=== PATIENT | male | born 1950 | race Caucasian/White ===

== ENCOUNTER 2022-08-20 14:46 | Inpatient (IN) | payer MEDICARE, OTHER ==
[~2022-08-20] VITALS: Ht 170.2 cm; Wt 97.1 kg
[2022-08-20] MEDS ORDERED: ASPI-1420 PO (15:03)
[2022-08-20] MEDS ORDERED: TAMS-12 PO (15:03)
[2022-08-20] MEDS ORDERED: ALLA266C2 TP (15:03)
[2022-08-20] MEDS ORDERED: ACET-868 PO (15:03)
[2022-08-20] MEDS ORDERED: BISA10SU11 RC (15:03)
[2022-08-20] MEDS ORDERED: METF-440 PO (15:03)
[2022-08-20] MEDS ORDERED: PANT40TA2 PO (15:03)
[2022-08-20] MEDS ORDERED: ACET-2605 PO ×2 (15:03)
[2022-08-20] MEDS ORDERED: CRAN3875 PO (15:03)
[2022-08-20] MEDS ORDERED: LOSA100T31 PO (15:03)
[2022-08-20] MEDS ORDERED: FINA5TAB11 PO (15:03)
[2022-08-20] MEDS ORDERED: SENN-18 PO (15:03)
[2022-08-20] MEDS ORDERED: LORA-259 PO (15:03)
[2022-08-20] MEDS ORDERED: DOCU-141 PO (15:03)
[2022-08-20] MEDS ORDERED: NA P133E RC (15:03)
[2022-08-20] MEDS ORDERED: MAGN400O6 PO (15:03)
[2022-08-20 15:33] LABS: BASOPHILS % (AUTO) 0.6 % (0.0-2.0); EOSINOPHILS % (AUTO) 3.8 % (0.0-6.0); HEMATOCRIT 54 % (39-51); HEMOGLOBIN 17.4 g/dL (13.5-17.5); LYMPHOCYTES # (AUTO) 1.9 K/uL (0.8-4.8); LYMPHOCYTES % (AUTO) 22.7 % (20.0-44.0); MEAN CORPUSCULAR HGB CONC 32 g/dl (31.0-36.0); MEAN CORPUSCULAR VOLUME 98 fL (80-96); MONOCYTES # (AUTO) 0.7 K/uL (0.1-1.30); MONOCYTES % (AUTO) 7.8 % (2.0-12.0); NEUTROPHILS # (AUTO) 5.5 K/uL (1.8-8.9); NEUTROPHILS % (AUTO) 65.1 % (43.0-81.0); PLATELET COUNT (AUTO) 140 K/uL (150-450); RED BLOOD CELL COUNT(AUTO) 5.55 MIL/uL (4.5-6.0); WHITE BLOOD COUNT (AUTO) 8.4 K/uL (4.3-11.0)
[2022-08-20 16:00] LABS: ALANINE AMINOTRANSFERASE 24 U/L (12-78); ALBUMIN 3.5 g/dL (3.4-5.0); ALKALINE PHOSPHATASE 107 U/L (46-116); ASPARTATE AMINOTRANSFERASE 22 U/L (15-37); BILIRUBIN,DIRECT 0.3 mg/dL (0.0-0.2); BILIRUBIN,TOTAL 0.7 mg/dL (0.2-1.0); CALCIUM, SERUM 9.5 mg/dL (8.5-10.1); CARBON DIOXIDE 26 mmol/L (21-32); CHLORIDE 120 mmol/L (98-107); CREATININE 1.5 mg/dL (0.6-1.3); GLUCOSE 120 mg/dL (74-106); POTASSIUM 3.4 mmol/L (3.5-5.1); TOTAL PROTEIN, SERUM 7.6 g/dL (6.4-8.2); UREA NITROGEN, BLOOD 18 mg/dL (7-18)
[2022-08-20 16:02] LABS: SODIUM SERUM 159 mmol/L (136-145)
--- NOTE | 2022-08-20 16:07 | NUR ---
sodium 159 , md made aware
--- NOTE | 2022-08-20 16:07 | NUR ---
covid swab taken
--- NOTE | 2022-08-20 16:57 | NUR ---
CALLED NURSING SUP REGARDING PT BED
[2022-08-20] MEDS ORDERED: ONDANSETRON HCL/PF 4 MG/2 ML VIAL IVP PRN (17:30)
[2022-08-20] MEDS ORDERED: ACETAMINOPHEN 325 MG TABLET PO PRN (17:30)
[2022-08-20] MEDS ORDERED: Z GUARD REMEDY 4 OZ OINT TP PRN (17:30)
--- NOTE | 2022-08-20 17:38 | NUR ---
BED ASSIGNED 107, ADMITTING AWARE
--- NOTE | 2022-08-20 18:39 | NUR ---
report given to ani bond RN
--- NOTE | 2022-08-20 18:39 | NUR ---
received report from tonja rn regading the patient, endorsed to main nurse DARIEL CALVILLO.
--- NOTE | 2022-08-20 19:00 | NUR ---
VACUUM CLEANER MECHANIC NOTES: PT TRANSFERRED TO [facility] FROM ER. PLACED IN ROOM 107 BED 1. PT AWAKE, ALERT/ORIENTED X1 WITH VERY CONFUSION AND RESPONSIVE TO PAINFUL STIMULI. ON O2 AT 2L/MIN VIA N/C AND O2 SAT 96%. IV ACCESS ON RT AND LT AC #20G INTACT AND PATENT. NO S/S OF INFILTRATIONS. WILL START D5W. NO FACIAL GRIMACING NOTED. NO ACUTE DISTRESS. BODY ASSESSMENT DONE. NO OPEN SKIN OR SKIN DISCOLORATION NOTED. INCONTINENT ON BOWEL AND BLADDER. ALL SAFETY MEASURES IN PLACE. BED IN LOWEST POSITION AND LOCKED. SIDE RAILS UP X3. PLACE CALL LIGHT WITH IN REACH. WILL CONTINUE TO MONITOR
--- NOTE | 2022-08-20 19:03 | NUR ---
moved to assigned inpatient room safely per acls protocol
[2022-08-20 20:00] VITALS: BP 159/79
[2022-08-20] MEDS: IV D5W 1,000 ML IV PRN (20:34)
[2022-08-20] MEDS: ENOXAPARIN SODIUM 40 MG/0.4 ML DISP.SYRIN SQ SCH (21:01)
[2022-08-21] VITALS: BP 183/89
--- NOTE | 2022-08-21 00:18 | NUR ---
RN NOTES: PT'S BP-183/89, PULSE- 69. ALSO PT WAS C/O SEVERE GENERALIZED BODY PAIN. NOTIFIED MARTI HYLTON. ORDER- MORPHINE 2MG IV Q4 HOURS AND HYDRALAZINE 10 MG IV Q4 HOURS PRN FOR HTN. ORDER NOTED AND CARRIED OUT
[2022-08-21] MEDS: hydrALAZINE HCL IV 20 MG VIAL IV PRN ×2 (00:42→16:11)
[2022-08-21] MEDS: MORPHINE SULFATE INJ 2 MG/ML DISP.SYRIN IV PRN (03:36)
--- NOTE | 2022-08-21 03:42 | NUR ---
RN NOTES: PT C/O GENERALIZED BODY ACHE, NOTED PT MOANING, CRYING. MORPHINE 1 ML GIVEN AND PT TOLERATED WELL. WILL CONTINUE TO MONITOR
[2022-08-21 04:00] VITALS: BP 162/88
[2022-08-21 07:23] LABS: BASOPHILS % (AUTO) 0.6 % (0.0-2.0); EOSINOPHILS % (AUTO) 4.8 % (0.0-6.0); HEMATOCRIT 53 % (39-51); HEMOGLOBIN 17.7 g/dL (13.5-17.5); LYMPHOCYTES # (AUTO) 2.1 K/uL (0.8-4.8); LYMPHOCYTES % (AUTO) 25.1 % (20.0-44.0); MEAN CORPUSCULAR HGB CONC 33 g/dl (31.0-36.0); MEAN CORPUSCULAR VOLUME 98 fL (80-96); MONOCYTES # (AUTO) 0.6 K/uL (0.1-1.30); MONOCYTES % (AUTO) 6.8 % (2.0-12.0); NEUTROPHILS # (AUTO) 5.4 K/uL (1.8-8.9); NEUTROPHILS % (AUTO) 62.7 % (43.0-81.0); PLATELET COUNT (AUTO) 124 K/uL (150-450); RED BLOOD CELL COUNT(AUTO) 5.46 MIL/uL (4.5-6.0); WHITE BLOOD COUNT (AUTO) 8.5 K/uL (4.3-11.0)
[2022-08-21 07:41] LABS: ALANINE AMINOTRANSFERASE 23 U/L (12-78); ALBUMIN 3.4 g/dL (3.4-5.0); ALKALINE PHOSPHATASE 108 U/L (46-116); ASPARTATE AMINOTRANSFERASE 22 U/L (15-37); BILIRUBIN,TOTAL 0.7 mg/dL (0.2-1.0); CALCIUM, SERUM 9.4 mg/dL (8.5-10.1); CARBON DIOXIDE 27 mmol/L (21-32); CHLORIDE 117 mmol/L (98-107); CREATININE 1.4 mg/dL (0.6-1.3); GLUCOSE 123 mg/dL (74-106); MAGNESIUM 2.2 mg/dL (1.8-2.4); PHOSPHORUS 2.9 mg/dL (2.5-4.9); TOTAL PROTEIN, SERUM 7.6 g/dL (6.4-8.2); UREA NITROGEN, BLOOD 18 mg/dL (7-18)
[2022-08-21 07:49] LABS: POTASSIUM 2.8 mmol/L (3.5-5.1)
[2022-08-21 07:52] LABS: SODIUM SERUM 157 mmol/L (136-145)
[2022-08-21 08:00] VITALS: BP 150/99
[2022-08-21] MEDS: PANTOPRAZOLE 40 MG VIAL IV SCH (08:46)
--- NOTE | 2022-08-21 09:40 | NUR ---
RN CHANGE SHIFT REPORT I MOVED TO ICU AND THIS THE REPORT FOR THIS PATIENT GIVEN TO GRAND VICTOR FOR CONTINUE OF CARE. PANTOPRAZOLE IV PUSH GIVEN TO THE PATIENT. PATIENT IS NPO AND WAITING FOR THE G TUBE PLACEMENT.
[2022-08-21] MEDS: POTASSIUM CL. PREMIX PERIPHER. 50 ML IV SCH ×6 (10:34→16:28)
[2022-08-21] MEDS: IV D5W 1,000 ML IV PRN (10:37)
[2022-08-21 12:00] VITALS: BP 158/86
[2022-08-21 16:00] VITALS: BP 174/95
--- NOTE | 2022-08-21 16:01 | NUR ---
URINE CULTURE TAKE VIA STRAIGHT CATHETER PER ORDER AND SENT IT TO THE LAB.
--- NOTE | 2022-08-21 16:15 | NUR ---
HYDRALAZINE 10MG IVP GIVEN D/T BP 174/95, HR 72
--- NOTE | 2022-08-21 16:37 | NUR ---
INFORMED RADIOLOGY FOR STAT CT SCAN OF THE HEAD.
--- NOTE | 2022-08-21 16:53 | NUR ---
PATIENT WENT FOR CT SCAN OF THE HEAD
[2022-08-21 18:37] LABS: BILIRUBIN,URINE 2+ (NEGATIVE); COLOR,URINE YELLOW (YELLOW); LEUKOCYTE ESTERASE ,URINE NEGATIVE (NEGATIVE); NITRITE, URINE NEGATIVE (NEGATIVE); PROTEIN,URINE 2+ mg/dl (NEGATIVE); UGLUCOSE NEGATIVE (NEGATIVE)
[2022-08-21 19:02] LABS: BACTERIA,URINE Many /HPF (None Seen); RBC,URINE 21-50 /HPF (0-2); WBC,URINE 0-2 /HPF (0-3)
[2022-08-21 19:03] LABS: SQUAMOUS EPITHELIAL CELL,UR Moderate /HPF (None Seen); URINE AMORPHOUS URATE Moderate /HPF (None Seen)
--- NOTE | 2022-08-21 19:15 | NUR ---
PATIENT IS RESTING IN BED COMFORTABLY, BILATERAL RESTRAINTS IN PLACED, VITAL SIGNS ARE STABLE, NO SIGNS OF IN DISTRESS,NO COMPLAINT OF PAIN, RIGHT AC WITH D5W @75ML/HR. SIDE RAILS ARE UP, CALL LIGHT WITHIN REACH, BED IN LOW POSITION.
[2022-08-21 20:00] VITALS: BP 149/81
[2022-08-21] MEDS: ENOXAPARIN SODIUM 40 MG/0.4 ML DISP.SYRIN SQ SCH (21:00)
[2022-08-22] VITALS: BP 155/79
[2022-08-22 04:00] VITALS: BP 135/85
[2022-08-22 06:50] LABS: CALCIUM, SERUM 9.3 mg/dL (8.5-10.1); CARBON DIOXIDE 23 mmol/L (21-32); CHLORIDE 118 mmol/L (98-107); CREATININE 1.3 mg/dL (0.6-1.3); GLUCOSE 123 mg/dL (74-106); MAGNESIUM 2.1 mg/dL (1.8-2.4); POTASSIUM 3.3 mmol/L (3.5-5.1); SODIUM SERUM 154 mmol/L (136-145); UREA NITROGEN, BLOOD 18 mg/dL (7-18)
[2022-08-22 06:55] LABS: BASOPHILS % (AUTO) 0.4 % (0.0-2.0); EOSINOPHILS % (AUTO) 4.6 % (0.0-6.0); HEMATOCRIT 50 % (39-51); HEMOGLOBIN 16.4 g/dL (13.5-17.5); LYMPHOCYTES # (AUTO) 1.7 K/uL (0.8-4.8); LYMPHOCYTES % (AUTO) 19.7 % (20.0-44.0); MEAN CORPUSCULAR HGB CONC 33 g/dl (31.0-36.0); MEAN CORPUSCULAR VOLUME 97 fL (80-96); MONOCYTES # (AUTO) 0.6 K/uL (0.1-1.30); MONOCYTES % (AUTO) 6.5 % (2.0-12.0); NEUTROPHILS % (AUTO) 68.8 % (43.0-81.0); PLATELET COUNT (AUTO) 126 K/uL (150-450); RED BLOOD CELL COUNT(AUTO) 5.18 MIL/uL (4.5-6.0); WHITE BLOOD COUNT (AUTO) 8.7 K/uL (4.3-11.0)
[2022-08-22 07:00] LABS: SERUM AMMONIA 13 umol/L (11-32)
--- NOTE | 2022-08-22 07:25 | NUR ---
PAI GOW MANAGER OPENING NOTES Received pt awake in bed A/OX1 with episodes of confusion. No signs of pain or discomfort at this time. Pt is NC 2L and tolerating it well. IV access on RAC and LAC 20G currently running D5W 75cc/hr. Pt remains NPO pending GT placement. HOB elevated 30 degrees. Siderails up at all times x2. Call light within reach. Will continue to monitor.
[2022-08-22 08:00] VITALS: BP 136/82
[2022-08-22] MEDS: PANTOPRAZOLE 40 MG VIAL IV SCH (08:18)
--- NOTE | 2022-08-22 08:29 | NUR ---
PATIENT RESTED WELL THROUGH THE NIGHT EXCEPT PULLING ON MEDICAL EQUIPMENT. PATIENT CONTINUED TO BE ON BILATERAL SOFT WRIST RESTRAINT. PROTOCOL MAINTAINED, RESTRAINT RENEWED THIS SHIFT. DUE MEDICATIONS AND CARE WERE GIVEN. NO CHANGE IN CONDITION. REPORT WAS GIVEN TO THE ON COMING SHIFT FOR A CONTINUOUS EXPERT CARE.
[2022-08-22] MEDS: POTASSIUM CL. PREMIX PERIPHER. 50 ML IV SCH ×2 (10:10→11:32)
[2022-08-22 12:00] VITALS: BP 134/78
[2022-08-22] MEDS: IV D5W 1,000 ML IV PRN ×2 (14:19)
[2022-08-22 16:00] VITALS: BP 155/81
[2022-08-22] MEDS: hydrALAZINE HCL IV 20 MG VIAL IV PRN (17:44)
--- NOTE | 2022-08-22 17:44 | NUR ---
TELECOMMUNICATIONS FIELD TECHNICIAN NOTES Hydralazine IV given d/t bp 167/72.
--- NOTE | 2022-08-22 18:30 | NUR ---
SHEET METAL ASSEMBLER CLOSING NOTES All due meds and tx given as ordered. Pt toelrated everything well. All needs attended to. Pt is currently on 2L NC and tolerating it well. IV access on RAC 20G patent and intact running D5W @ 75cc/hr. PRN hydralazine ineffective. BP remains elevated at 168/89. MD Talbot notified and awaiting response. Will endorse to oncoming nurse.
[2022-08-22] MEDS: MORPHINE SULFATE INJ 2 MG/ML DISP.SYRIN IV PRN (18:44)
--- NOTE | 2022-08-22 18:52 | NUR ---
PIERCE AND SHAVE PRESS OPERATOR NOTES Morphine 2mg given IV d/t pt facial grimacing and elevated HR @116.
[2022-08-22] MEDS ORDERED: LABETALOL HCL IV 100MG VIAL IV PRN (19:00)
--- NOTE | 2022-08-22 19:15 | NUR ---
TARIFF SUPERVISOR OPENING NOTE PT IS SLEEPING IN BED, EASILY BEING AROUSED. PT IS VERY CONFUSED. A/O X 0. PT IS ON 3 LPM OF OXYGEN VIA NC, TOLERATING WELL. NO SOB OR DISTRESS. ON EXTERNAL REAL ESTATE ASSISTANT, IT SHOWS PT'S HEART RHYTHM IS SINUS RHYTHM WITH HR AT 80S. PT DOES NOT SHOW HAVING ANY PAIN. IV ACCESS IS AT HIS L AC, #20G; RUNNING D5W @ 75 ML/HR. SAFETY MEASURES IN PLACE: BED IN LOWEST AND LOCKED POSITION, SIDE RAILS UP X2, AND CALL LIGHT WITHIN REACH. WILL CONTINUE MONITOR THE PATIENT AND PROVIDE THE CARE PATIENT NEEDS.
[2022-08-22 20:00] VITALS: BP 162/79
[2022-08-22] MEDS: ENOXAPARIN SODIUM 40 MG/0.4 ML DISP.SYRIN SQ SCH (21:14)
[2022-08-23] VITALS: BP 145/73
[2022-08-23] MEDS: IV D5W 1,000 ML IV PRN ×2 (02:47→21:06)
[2022-08-23 04:00] VITALS: BP 151/89
[2022-08-23 06:20] LABS: BASOPHILS % (AUTO) 0.5 % (0.0-2.0); EOSINOPHILS % (AUTO) 5.4 % (0.0-6.0); HEMATOCRIT 53 % (39-51); HEMOGLOBIN 17.5 g/dL (13.5-17.5); LYMPHOCYTES # (AUTO) 1.8 K/uL (0.8-4.8); LYMPHOCYTES % (AUTO) 22.9 % (20.0-44.0); MEAN CORPUSCULAR HGB CONC 33 g/dl (31.0-36.0); MEAN CORPUSCULAR VOLUME 97 fL (80-96); MONOCYTES # (AUTO) 0.6 K/uL (0.1-1.30); MONOCYTES % (AUTO) 7.2 % (2.0-12.0); PLATELET COUNT (AUTO) 116 K/uL (150-450); RED BLOOD CELL COUNT(AUTO) 5.48 MIL/uL (4.5-6.0); WHITE BLOOD COUNT (AUTO) 7.9 K/uL (4.3-11.0)
[2022-08-23 06:43] LABS: CALCIUM, SERUM 9.5 mg/dL (8.5-10.1); CARBON DIOXIDE 27 mmol/L (21-32); CHLORIDE 111 mmol/L (98-107); CREATININE 1.3 mg/dL (0.6-1.3); GLUCOSE 129 mg/dL (74-106); POTASSIUM 3.3 mmol/L (3.5-5.1); SODIUM SERUM 149 mmol/L (136-145); UREA NITROGEN, BLOOD 17 mg/dL (7-18)
--- NOTE | 2022-08-23 06:44 | NUR ---
PICK UP WORKER CLOSING NOTE PT IS SLEEPING IN BED, EASILY BEING AROUSED. PT IS VERY CONFUSED. A/O X 0. PT IS ON 3 LPM OF OXYGEN VIA NC, TOLERATING WELL. NO SOB OR DISTRESS. ON EXTERNAL COMPRESSOR STATION ENGINEER CHIEF, PTS HEART RHYTHM IS SINUS RHYTHM WITH HR AT 80S. PT DOES NOT SHOW HAVING ANY PAIN. IV ACCESS IS AT HIS L AC, #20G; RUNNING D5W @ 75 ML/HR. SAFETY MEASURES IN PLACE: BED IN LOWEST AND LOCKED POSITION, SIDE RAILS UP X2, AND CALL LIGHT WITHIN REACH. WILL ENDORSE NEXT SHIFT NURSE FOR CONTINUING PATIENT CARE.
--- NOTE | 2022-08-23 07:30 | NUR ---
RN Opening Note Patient AOx2 able to express his concerns. Patient speaks Barbadian, able to express his concerns, delayed and mumbled speech. Patient reports and demonstrates no signs of distress or discomfort. Patient made aware of plan of care and verbalized agreement. All safety precautions taken, call light and table within reach, bed at lowest position.
[2022-08-23 08:00] VITALS: BP 164/92
[2022-08-23] MEDS: hydrALAZINE HCL IV 20 MG VIAL IV PRN (08:22)
[2022-08-23] MEDS: PANTOPRAZOLE 40 MG VIAL IV SCH (08:22)
[2022-08-23] MEDS: POTASSIUM CL. PREMIX PERIPHER. 50 ML IV SCH ×2 (10:47→11:51)
[2022-08-23 12:00] VITALS: BP 125/72
[2022-08-23 16:38] VITALS: BP 138/74
--- NOTE | 2022-08-23 18:36 | NUR ---
RN Closing Note Patient AOx2 able to express his concerns. Patient speaks Congolese, able to express his concerns, delayed and mumbled speech. Patient reports and demonstrates no signs of distress or discomfort. Patient made aware of plan of care and verbalized agreement. Provided care and administered medications as ordered. Patient was able to eat and drink fluids throughout shift, tolerated well. All safety precautions taken, call light and table within reach, bed at lowest position. Will endorse to night baker for continuity of care.
--- NOTE | 2022-08-23 19:40 | NUR ---
RN OPENING NOTE RECEIVED PATIENT IN BED; AWAKE, ALERT AND ORIENTED X 1; CONFUSED. ON O2 INHALATION @ 3 LPM VIA NC; TOLERATING WELL. NO SOB OR CARDIAC DISTRESS NOTED. ON EXTERNAL PC SUPPORT SPECIALIST; SINUS RHYTHM HR-80 BPM. WITH IV ACCESS @ STEVEN 20G; RUNNING WITH D5W REGULATED @ 75 ML/HR; FLUSHES WELL. ANOTHER IV ACCESS ON LEFT WRIST 2Og; PATENT, INTACT AND SALINE LOCKED. SAFETY MEASURES IMPLEMENTED: HEAD OF BED ELEVATED, CALL LIGHT AND TABLE WITHIN REACH, SIDE RAILS UP X 2, BED IN LOWEST LOCKED POSITION. WILL CONTINUE PLAN OF CARE.
[2022-08-23] MEDS: ENOXAPARIN SODIUM 40 MG/0.4 ML DISP.SYRIN SQ SCH (21:23)
[2022-08-23 21:38] VITALS: BP 126/70
[2022-08-24] VITALS: BP 120/68
[2022-08-24 04:00] VITALS: BP 152/86
[2022-08-24 07:00] LABS: BASOPHILS % (AUTO) 0.4 % (0.0-2.0); EOSINOPHILS % (AUTO) 3.6 % (0.0-6.0); HEMATOCRIT 47 % (39-51); HEMOGLOBIN 15.7 g/dL (13.5-17.5); LYMPHOCYTES # (AUTO) 1.7 K/uL (0.8-4.8); LYMPHOCYTES % (AUTO) 22.3 % (20.0-44.0); MEAN CORPUSCULAR HGB CONC 33 g/dl (31.0-36.0); MEAN CORPUSCULAR VOLUME 96 fL (80-96); MONOCYTES # (AUTO) 0.6 K/uL (0.1-1.30); MONOCYTES % (AUTO) 7.6 % (2.0-12.0); NEUTROPHILS % (AUTO) 66.1 % (43.0-81.0); PLATELET COUNT (AUTO) 108 K/uL (150-450); RED BLOOD CELL COUNT(AUTO) 4.88 MIL/uL (4.5-6.0); WHITE BLOOD COUNT (AUTO) 7.6 K/uL (4.3-11.0)
--- NOTE | 2022-08-24 07:00 | NUR ---
RN CLOSING NOTE PATIENT IN BED; AWAKE, A/O X 1; CONFUSED. STILL ON O2 INHALATION @ 3 LPM VIA NC; WELL TOLERATED. IN NO ACUTE DISTRESS. ON EXTERNAL CARDIAC MONITORING; SINUS RHYTHM HR-85 BPM. WITH IV ACCESS @ STEVEN 20G; RUNNING WITH D5W REGULATED @ 75 ML/HR; FLUSHES WELL. ANOTHER IV ACCESS ON LEFT WRIST 2Og; PATENT, INTACT AND SALINE LOCKED. SAFETY MEASURES IN PLACE: HEAD OF BED ELEVATED, CALL LIGHT AND TABLE WITHIN REACH, SIDE RAILS UP X 2, BED IN LOWEST LOCKED POSITION. ENDORSED TO KARLI ANDERSON FOR ANG.
[2022-08-24 07:35] LABS: CARBON DIOXIDE 25 mmol/L (21-32); CHLORIDE 110 mmol/L (98-107); CREATININE 1.5 mg/dL (0.6-1.3); GLUCOSE 134 mg/dL (74-106); PHOSPHORUS 2.8 mg/dL (2.5-4.9); POTASSIUM 3.1 mmol/L (3.5-5.1); SODIUM SERUM 146 mmol/L (136-145); UREA NITROGEN, BLOOD 20 mg/dL (7-18)
[2022-08-24 08:00] VITALS: BP 165/91
[2022-08-24] MEDS ORDERED: PANTOPRAZOLE 40 MG/PACK PACK GT SCH (09:00)
[2022-08-24] MEDS: hydrALAZINE HCL IV 20 MG VIAL IV PRN (09:43)
[2022-08-24] MEDS: PANTOPRAZOLE 40 MG/PACK PACK GT SCH (09:43)
[2022-08-24] MEDS ORDERED: POTASSIUM CHLORIDE 20 MEQ POWDER PACKET PO ONE (11:30)
[2022-08-24 12:00] VITALS: BP 125/58
[2022-08-24] MEDS: IV D5W 1,000 ML IV PRN (12:01)
[2022-08-24] MEDS ORDERED: BISACODYL SUPP (10 MG) 10 MG/SUPP.RECT SUPP.RECT RC PRN (12:30)
[2022-08-24 16:00] VITALS: BP 135/65
--- NOTE | 2022-08-24 19:24 | NUR ---
RN CLOSING NOTE PATIENT IN BED A/O X 1; MALAYSIAN SPEAKING. BREATHING O2 INHALATION @ 3 LPM VIA NC; WELL TOLERATED. IN NO ACUTE DISTRESS. ON EXTERNAL CARDIAC MONITORING; SINUS RHYTHM HR-74 BPM. WITH IV ACCESS @ STEVEN 20G; RUNNING D5W @ 75 ML/HR;. SAFETY MEASURES IN PLACE: HEAD OF BED ELEVATED, CALL LIGHT AND TABLE WITHIN REACH, SIDE RAILS UP X 2, BED IN LOWEST LOCKED POSITION. ENDORSED TO NIGHT RN FOR ANG.
--- NOTE | 2022-08-24 19:30 | NUR ---
WATERWAY TRAFFIC CHECKER OPENING NOTE RECEIVED PT IN BED, SLEEPING, EASILY AROUSED. A/O X 0. HE RESPONDS TO QUESTIONS BUT SPEAKS CITIZEN OF [place] ONLY. CURRENTLY ON 3 LPM OF OXYGEN VIA NC, TOLERATING WELL. NO SOB OR ACUTE RESPI DISTRESS NOTED AT THIS TIME. ON EXTERNAL CONSTRUCTION SECRETARY, SINUS RHYTHM WITH HR IN THE 60S. IV ACCESS NOTED ON LAC, #20g, RUNNING D5W @ 75 ML/HR, PATENT, INTACT, AND FLUSHING WELL. ALL SAFETY MEASURES IN PLACE: BED IN LOWEST AND LOCKED POSITION, SIDE RAILS UP X2, AND CALL LIGHT WITHIN REACH. WILL CONTINUE MONITOR THE PATIENT.
[2022-08-24 20:00] VITALS: BP 130/58
[2022-08-24] MEDS: ENOXAPARIN SODIUM 40 MG/0.4 ML DISP.SYRIN SQ SCH (20:39)
[2022-08-24] MEDS: TAMSULOSIN 0.4 MG CAP.SR.24H PO SCH (21:06)
[2022-08-25] VITALS (7 sets, daily range): BP systolic 123–149; BP diastolic 60–77
[2022-08-25] MEDS: IV D5W 1,000 ML IV PRN (01:42)
--- NOTE | 2022-08-25 06:19 | NUR ---
RN NOTE PT REMAINED STABLE T/O THE NIGHT. ALL VS STABLE. PT STILL CONFUSED AND TRIES TO GET UP FROM THE BED. DUE MEDS GIVEN. NEEDS ATTENDED TO. PM CARE DONE. TURNED AND REPOSITIONED. ALL SAFETY MEASURES MAINTAINED. WILL ENDORSE TO AM SHIFT NURSE FOR ANG.
[2022-08-25] MEDS: LORAZEPAM INJ 2 MG/ML VIAL IV PRN ×2 (07:16→16:08)
[2022-08-25] MEDS: FINASTERIDE (5 MG) 5 MG TABLET PO SCH (11:16)
[2022-08-25] MEDS: ASPIRIN EC 81 MG TABLET.DR PO SCH (11:16)
[2022-08-25] MEDS: PANTOPRAZOLE 40 MG/PACK PACK GT SCH (11:16)
[2022-08-25] MEDS: LOSARTAN POTASSIUM 50 MG TABLET PO SCH (11:17)
[2022-08-25 12:28] LABS: CALCIUM, SERUM 8.6 mg/dL (8.5-10.1); CREATININE 1.2 mg/dL (0.6-1.3); PHOSPHORUS 2.7 mg/dL (2.5-4.9); POTASSIUM 3.2 mmol/L (3.5-5.1)
[2022-08-25 12:43] LABS: BASOPHILS % (AUTO) 0.3 % (0.0-2.0); EOSINOPHILS % (AUTO) 4.7 % (0.0-6.0); HEMATOCRIT 47 % (39-51); HEMOGLOBIN 14.8 g/dL (13.5-17.5); LYMPHOCYTES # (AUTO) 1.6 K/uL (0.8-4.8); LYMPHOCYTES % (AUTO) 23.3 % (20.0-44.0); MEAN CORPUSCULAR HGB CONC 32 g/dl (31.0-36.0); MEAN CORPUSCULAR VOLUME 100 fL (80-96); MONOCYTES # (AUTO) 0.6 K/uL (0.1-1.30); MONOCYTES % (AUTO) 9.4 % (2.0-12.0); NEUTROPHILS # (AUTO) 4.3 K/uL (1.8-8.9); NEUTROPHILS % (AUTO) 62.3 % (43.0-81.0); PLATELET COUNT (AUTO) 92 K/uL (150-450); RED BLOOD CELL COUNT(AUTO) 4.69 MIL/uL (4.5-6.0); WHITE BLOOD COUNT (AUTO) 6.9 K/uL (4.3-11.0)
[2022-08-25 16:11] LABS: EOSINOPHILS % (MANUAL) 6 % (0-4); LYMPHOCYTES % (MANUAL) 26 % (16-48); MONOCYTES % (MANUAL) 7 % (0-11.0); NEUTROPHILS % (MANUAL) 61 (42-76)
--- NOTE | 2022-08-25 17:18 | NUR ---
RN NOTE CALLED [facility] , REPORT GIVE TO KARLI JOHN. 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 NOTIFIED , JEAN, .
--- NOTE | 2022-08-25 19:20 | NUR ---
RN NOTE RECEIVED PATIENT IN BED, CONFUSED, IN NO S/SX OF ACUTE DISTRESS AT THIS TIME, SITTER AT BEDSIDE. BREATHING UNLABORED, SATURATION AT 96%, SR WITH PVC'S ON THE MONITOR, HR IS 70. NOTED IV SITE AT STEVEN 20G PATENT AND FLUSHING WELL, NO S/S OF INFECTION OR INFILTRATION WITH D5W INFUSING AT 75 ML/HR. SAFETY MEASURES IMPLEMENTED. PATIENT BED ALARM IS ON. HEAD OF BED ELEVATED. BED IS LOCKED, IN LOWEST POSITION AND SIDE RAILS UP. CALL LIGHT WITHIN REACH OF THE PATIENT. WILL CONTINUE TO MONITOR AND REASSESS FOR ANY CHANGES.
--- NOTE | 2022-08-25 19:59 | NUR ---
RN NOTES Per endorsement from [facility], [facility] called that machine operator hop picker time will be @2300. Called [facility] to let them them know; spoke to Florinda and stated it has to be postponed in am since no nurse to admit patient after 11pm. candy supervisor Donna notified. 2009 Called [facility] [phone] and re scheduled for 7AM machine operator hop picker c/o Brian.
[2022-08-25] MEDS ORDERED: POTASSIUM CHLORIDE 10 MEQ/50 ML PREMIXED IVPB FOR PERIPHERAL LINE IV ONE (20:30)
[2022-08-25] MEDS ORDERED: Magnesium 1GM/D5W 100ML PREMIX PIGGYBACK IV ONE (20:30)
[2022-08-25] MEDS: Magnesium 1GM/D5W 100ML PREMIX 100 ML IV SCH ×2 (21:29→22:33)
[2022-08-25] MEDS: TAMSULOSIN 0.4 MG CAP.SR.24H PO SCH (21:30)
[2022-08-25] MEDS: POTASSIUM CL. PREMIX PERIPHER. 50 ML IV SCH ×2 (21:30→22:33)
[2022-08-25] MEDS: ENOXAPARIN SODIUM 40 MG/0.4 ML DISP.SYRIN SQ SCH (21:35)
[2022-08-26] VITALS: BP 101/61
[2022-08-26] MEDS: IV D5W 1,000 ML IV PRN (00:11)
[2022-08-26 04:00] VITALS: BP 118/61
--- NOTE | 2022-08-26 07:15 | NUR ---
RN OPENING NOTE RECEIVED PATIENT IN BED; AWAKE, ALERT AND ORIENTED X 1; CONFUSED. ON O2 INHALATION @ 2 LPM VIA NC; TOLERATING WELL. NO SOB OR CARDIAC DISTRESS NOTED. ON EXTERNAL IRON ASSORTER; SINUS RHYTHM . WITH IV ACCESS @ STEVEN 20G; RUNNING WITH D5W @ 75 ML/HR; FLUSHES WELL.. SAFETY MEASURES IMPLEMENTED: HEAD OF BED ELEVATED, CALL LIGHT AND TABLE WITHIN REACH, SIDE RAILS UP X 2, BED IN LOWEST LOCKED POSITION. WILL MONITOR
[2022-08-26 08:00] VITALS: BP 135/68
[2022-08-26] MEDS: PANTOPRAZOLE 40 MG/PACK PACK GT SCH (08:45)
[2022-08-26 08:46] VITALS: BP 135/68
[2022-08-26] MEDS: FINASTERIDE (5 MG) 5 MG TABLET PO SCH (08:46)
[2022-08-26] MEDS: ASPIRIN EC 81 MG TABLET.DR PO SCH (08:46)
[2022-08-26] MEDS: LOSARTAN POTASSIUM 50 MG TABLET PO SCH (08:46)
--- NOTE | 2022-08-26 11:06 | NUR ---
RN NOTES: LEFT UPPER ARM IV LINE REMOVED NO BLEEDING NOTED. BODY CHECKED DONE SKIN INTACT, VITAL SIGNS WITHIN NORMAL, [facility] WITH 2 EMT VIA GURNEY WITH NASAL CANNULA AT 2LITER/MIN, NO SIGNS OF PAIN OR SOB, CALLED [facility] AND GAVE REPORT TO HAO
== END 2022-08-26 11:24 | DRG 640 ==
LOC: ER 14:56 → TELE1 18:36
PROVIDERS: ADMIT Internal Medicine; ATTEND Nurse Practitioner Family
DX: E87.0 Hyperosmolality and hypernatremia (principal); G93.41 Metabolic encephalopathy; N17.0 Acute kidney failure with tubular necrosis; Z20.822 Contact with and (suspected) exposure to COVID-19; E11.9 Type 2 diabetes mellitus without complications; K74.60 Unspecified cirrhosis of liver; I11.9 Hypertensive heart disease without heart failure; Z86.73 Personal history of transient ischemic attack (TIA), and cerebral infarction without residual deficits; R13.10 Dysphagia, unspecified; Z91.012 Allergy to eggs; Z79.84 Long term (current) use of oral hypoglycemic drugs; Z79.899 Other long term (current) drug therapy; Z79.82 Long term (current) use of aspirin; F01.50 Vascular dementia, unspecified severity, without behavioral disturbance, psychotic disturbance, mood disturbance, and anxiety; E87.6 Hypokalemia
CPT/HCPCS: 36415; 70450-TC; 71045-TC; 80048-TC; 80053-TC; 80076-TC; 81001; 82140-TC; 83735-TC; 84100-TC; 84300-TC; 85025-TC; 87081-TC; 87086-TC; 92526; 92611-TC; C9113; C9803; G0378; J0360; J1650; J2060; J2270; J3475; J3480; J7030; J7060; J7070